=== PATIENT | female | born 1945 | race Caucasian/White ===

== ENCOUNTER 2024-02-10 13:12 | Emergency (ER) | payer OTHER, SELFPAY ==
[2024-02-10 13:29] VITALS: BP 202/88; PULSE 60; RESP 16; TEMP 36.9; O2SAT 98; BMI 34.3
--- NOTE | 2024-02-10 13:35 | DI.RAD.S_ITS ---
PROCEDURE: XR HIP W PEL IF DONE LT 2V INDICATIONS: fall/pain TECHNIQUE: AP pelvis with lateral view(s) of the left hip(s). COMPARISON: None. FINDINGS: Bones: No fractures or dislocations. Pelvic ring appears intact. No suspicious bony lesions. 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 Age-appropriate lower lumbar spine degenerative changes are noted. Soft tissues: The visualized bowel gas pattern is normal. No suspicious soft tissue calcifications. IMPRESSION: No sonia acute displaced fracture can be seen on these plain film images. If there is point tenderness (or other clinical suspicion for a fracture not seen on these images) then a dedicated CT could be considered for further evaluation, if clinically appropriate. Dictated by: Humphrey Cervantes M.D. on 02/10/2024 at 15:36 Approved by: Humphrey Cervantes M.D. on 02/10/2024 at 15:36
--- NOTE | 2024-02-10 13:51 | ED.LOWEXIN ---
HPI - Extremity Injury (Lower) General Chief Complaint: Extremity Injury, Lower Stated Complaint: L hip pain Time Seen by Provider: 02/10/24 13:45 Source: patient Mode of arrival: Ambulatory History of Present Illness HPI Narrative: Patient here with . Blood pressure noted, she states she has ?white coat syndrome? and her blood pressure usually goes up. She is anxious. Patient here for left hip and gluteal pain. Two days ago she was in the restaurant and a pin/pencil fell off the table and she leaned over to the left to retrieve it but she fell off the chair and landed on hard floor. Denies any other injuries. She has history of bursitis left hip back in September 2023. She did get a steroid shot, as well as physical therapy and recovered very well. Was using a cane at the time but no cane after good therapy. She has using a cane now but is able to walk independently without it. Has slight antalgic gait. Skin to the left hip and gluteus exposed. Patient is not on any blood thinner. Denies any other injuries. Related Data Home Medications Medication Instructions Recorded Confirmed atenolol 25 mg tablet 50 mg PO QDAY ##0 11/14/11 lisinopril 10 mg tablet 10 mg PO QDAY ##0 11/14/11 omeprazole 20 mg capsule,delayed 20 mg PO QDAY ##0 11/14/11 release MEPERIDINE HYDROCHLORIDE (DEMEROL) 100 mg PO PRN ##0 03/27/12 [DHE] ##0 03/27/12 ibuprofen 200 mg capsule 200 mg PO PRN ##0 03/27/12 Previous Rx's Medication Instructions Recorded hydrocodone 5 mg-acetaminophen 325 1 tab PO Q6H PRN pain #20 tabs 02/10/24 mg tablet ondansetron 4 mg disintegrating 4 mg PO Q8H PRN nausea and 02/10/24 tablet vomiting #10 tabs Allergies Allergy/AdvReac Type Severity Reaction Status Date / Time AMOXICILLIN Allergy Intermediate RASH Uncoded 10/06/17 12:21 OXYCODONE AdvReac Mild VOMITING Uncoded 10/06/17 12:21 Review of Systems Review of Systems Narrative: GENERAL: negative chills, fatigue, malaise, fever, sweats. HEENT: negative sinus pain, ear pain, sore throat RESPIRATORY: negative dyspnea, cough CARDIOVASCULAR: negative chest pain, palpitations GASTROINTESTINAL: negative nausea, vomiting, abdominal pain : negative dysuria, frequency, hematuria MUSCULOSKELETAL: Insert muscle or bony pain SKIN: negative rash, skin lesions NEUROLOGIC: negative weakness, numbness Patient History Social History Smoking Status: Former smoker Smoking Status: Former smoker Substance Use Type: does not use Exam Narrative Exam Narrative: GENERAL: in no distress, not toxic not dyspneic HEAD: Normocephalic. EYES: Pupils equal round ENT: Mucous membranes moist. NECK: Trachea midline. No midline tenderness or step-off of the cervical spine CARDIOVASCULAR: Regular rate and rhythm RESPIRATORY: Clear to auscultation. Breath sounds equal bilaterally. No wheezes, rales, or rhonchi. GASTROINTESTINAL: Abdomen soft, non-tender EXTREMITIES: No gross deformities. Examination left lower extremity. Mild tenderness to the supragluteal muscle as well as left hip area. Leg is not shortened or rotated., patient able to stand and bear weight. Has slight antalgic gait, has a cane in her hand but does not require using it. No foot drop. Light touch intact to thigh and leg. Nontender ankle and knee BACK: No flank tenderness. No midline tenderness or step-off of the cervical thoracic spine. No bruising seen on the gluteus or hip or thigh. NEURO: AOx4. SKIN: Warm and dry PSYCH: Not anxious, is cooperative Initial Vital Signs Initial Vital Signs: Vital Signs Temperature 98.4 F 02/10/24 13:29 Pulse Rate 60 02/10/24 13:29 Respiratory Rate 16 02/10/24 13:29 Blood Pressure 202/88 H 02/10/24 13:29 Pulse Oximetry 98 02/10/24 13:29 Oxygen Delivery Method Room Air 02/10/24 13:29 Course Orders Ordered: Discontinued Medications Hydrocodone Bitart/Acetaminophen (Hydrocodone/Acet 5/325 Tablet) 1 tab PO NOW ONE Stop: 02/10/24 13:52 Last Admin: 02/10/24 14:00 Dose: 1 tab Documented By: REMY Hydrocodone Bitart/Acetaminophen (Hydrocodone/Acet 5/325 Tablet) 1 tab PO NOW ONE Stop: 02/10/24 15:00 Last Admin: 02/10/24 15:17 Dose: 1 tab Documented By: REMY Ondansetron HCl (Ondansetron 4 Mg Odt) 4 mg SL NOW ONE Stop: 02/10/24 13:52 Last Admin: 02/10/24 13:59 Dose: 4 mg Documented By: REMY Vital Signs Vital signs: Vital Signs - 8 hr 02/10/24 13:29 Temperature 98.4 F Pulse Rate 60 Respiratory Rate 16 Blood Pressure 202/88 H Pulse Oximetry 98 Oxygen Delivery Method Room Air [facility] - Extremity Injury (Lower) [facility] Narrative Medical decision making narrative: Patient here with . Blood pressure noted, she states she has ?white coat syndrome? and her blood pressure usually goes up. She is anxious. Patient here for left hip and gluteal pain. Two days ago she was in the restaurant and a pin/pencil fell off the table and she leaned over to the left to retrieve it but she fell off the chair and landed on hard floor. Denies any other injuries. She has history of bursitis left hip back in September 2023. She did get a steroid shot, as well as physical therapy and recovered very well. Was using a cane at the time but no cane after good therapy. She has using a cane now but is able to walk independently without it. Has slight antalgic gait. Skin to the left hip and gluteus exposed. Patient is not on any blood thinner. Denies any other injuries. After history and exam hydrocodone Zofran x-ray left hip with pelvis [facility] Medical records reviewed: No recent visit for this complaint Differential considered: Includes but not limited to hip fracture pelvic fracture, hip/pelvic contusion Imaging studies independently reviewed: X-ray left hip, I reviewed with radiologist, no acute finding Consultations: None indicated at this time Treatments: Hydrocodone Zofran Re-evaluations: 3:08 p.m.. Pain has improved. However blood pressure also has improved. Reviewed results and imaging with patient and . At this time, no CT scan imaging as she is ambulating. However return precautions and if not improving 7-10 days may need repeat imaging or CT. She has to call [facility] to get orthopedic referral however I will give her on-call orthopedic referral as well, Dr. Patel. Patient is not driving. is driving. They desire discharge home Discussion: Appropriate for discharge home exam is reassuring. Blood pressure has improved. Not toxic at discharge. Pain is controlled. Return precautions reviewed. They desire discharge home Diagnosis: Left pelvis contusion Discharge Plan Departure Patient Disposition: Home Clinical Impression: Contusion of pelvis Qualifiers: Encounter type: initial encounter Qualified Code(s): S30.0XXA - Contusion of lower back and pelvis, initial encounter Contusion of hip, left Qualifiers: Encounter type: initial encounter Qualified Code(s): S70.02XA - Contusion of left hip, initial encounter Instructions: DI for Contusion Activity Restrictions/Additional Instructions: Your exam and x-ray imaging are reassuring at this time. However return if worse if any questions or concerns or if not improving in 7-10 days for repeat imaging. No driving operating machine today or when taking prescribed pain medication. You may continue ibuprofen for pain as well. See family doctor or you may need referral for Orthopedics for re-evaluation. You also may call on-call orthopedics, Dr. Patel, today for follow up in a week. Please have your blood pressure rechecked with your family doctor. It was elevated here today. You may continue using your cane. Prescriptions: New hydrocodone-acetaminophen 5-325 mg tablet 1 tab PO Q6H PRN (Reason: pain) Qty: 20 0RF ondansetron 4 mg tablet,disintegrating 4 mg PO Q8H PRN (Reason: nausea and vomiting) Qty: 10 0RF No Action lisinopril 10 MG tablet 10 mg PO QDAY Qty: 0 omeprazole 20 MG capsule,delayed release(DR/EC) 20 mg PO QDAY Qty: 0 atenolol 25 MG tablet 50 mg PO QDAY Qty: 0 MEPERIDINE HYDROCHLORIDE (DEMEROL) 100 mg PO PRN Qty: 0 [DHE] Qty: 0 ibuprofen 200 MG capsule 200 mg PO PRN Qty: 0 Referrals: Lraa Patel MD [Physician] - Stand Alone Forms: Patient Portal/API
[2024-02-10] MEDS: ONDANSETRON 4 MG ODT SL (13:59)
[2024-02-10] MEDS: HYDROCODONE/ACET 5/325 TABLET 1 TAB PO ×2 (14:00→15:17)
[2024-02-10 15:08] VITALS: BP 185/88; PULSE 52; RESP 14; O2SAT 98
[2024-02-10 15:18] VITALS: BP 183/84
== END 2024-02-10 15:44 | disposition home or self-care (01) ==
PROVIDERS: Emergency Provider Emergency Medicine
DX: S30.0XXA Contusion of lower back and pelvis, initial encounter (principal); S70.02XA Contusion of left hip, initial encounter; H35.029 Exudative retinopathy, unspecified eye; I10 Essential (primary) hypertension
CPT/HCPCS: 73502; 99283